=== PATIENT | male | born 1955 | race Caucasian/White ===

== ENCOUNTER → 2016-10-14 | Outpatient (CLI) | payer OTHER | END | disposition home or self-care (01) | LOC: C.LAB 17:49 → EDSTATUS 10-18 10:37 | PROVIDERS: ATTEND Family Medicine | DX: Z82.0 Family history of epilepsy and other diseases of the nervous system (principal) ==

== ENCOUNTER 2024-03-25 09:29 | Inpatient (IN) ==
--- NOTE | 2024-03-25 09:50 | Emergency Department Note ---
Impression & Plan SBO (small bowel obstruction), Abdominal pain ED Provider Note NAME: GREGORY SALES AGE: 68 SEX: M : 1955 ARRIVES VIA: Walk-In INFORMANT: Patient ED PROVIDER(S): Ravi Pathak DO CHIEF COMPLAINT: Abdominal pain HPI: Patient is a 68-year-old male with a past medical history of restrictive lung disease and sarcoidosis who presents to the ER for abdominal pain. Belly pain is located in the right mid abdomen. It was associated with some nausea. Denies any headache or change in vision. No chest pain or shortness of breath. Did have a little bit of a runny nose when the pain got severe and a cough. No dysuria, urgency, or frequency. Additional history is obtained from who is present at bedside who notes that there was no abdominal surgeries ever performed. ADDITIONAL HISTORY OBTAINED: Per HPI Chronic Medical/Social Conditions Affecting Care: Per HPI PAST MEDICAL HISTORY:See Below PAST SURGICAL HISTORY:See Below FAMILY HISTORY:See Below SOCIAL HISTORY:See Below HOME MEDICATIONS:See Below ALLERGIES:See Below VITALS:See Below PHYSICAL EXAMINATION: GENERAL: Sitting up in bed, alert, well appearing, well nourished, no distress, non-toxic EYE EXAM: normal conjunctiva. PERRL and EOM's grossly intact. OROPHARYNX: mucous membranes are moist NECK: supple, no nuchal rigidity, no adenopathy, non-tender LUNGS: Clear to auscultation. Normal chest wall mechanics HEART: no murmurs, S1 normal and S2 normal ABDOMEN: abdomen soft, non-tender, normo-active bowel sounds, no masses, no rebound or guarding. UPPER EXTREMITIES: upper extremities are grossly normal. LOWER EXTREMITIES: No pitting edema. NEURO EXAM: Normal sensorium, cranial nerves II-XII grossly intact, normal speech, no gross weakness of arms, no gross weakness of legs. MEDICAL DECISION MAKING: Patient is a 68-year-old male who presents to the ER for right mid abdominal pain. He eventually does remember having a surgery on his prostate which they went through the abdomen. IVs were established medicos obtained. Labs show no significant leukocytosis or anemia. BMP along with LFTs bilirubin was unremarkable. Lipase was normal. UA was clean. CT abdomen pelvis suggest a small bowel obstruction. Patient had no vomiting while in the ER. He was given IV fluids, for morphine and Zofran. He was updated bedside. Discussed with the hospitalist Albert Bryant for further evaluation/management treatment. I did notify Hanh Real from general surgery and will defer from the hospitalist. Consults/Care Managements Discussions: Per [facility] Triage Nursing notes reviewed. Limited review of prior medical records performed Vital Signs: reviewed and remarkable for no significant abnormalities Differential diagnosis: Differential diagnoses includes but is not limited to gastritis, peptic ulcer disease, GERD, gallbladder disease, pancreatitis, small bowel obstruction, appendicitis, diverticulitis, hernia, urinary tract infection, torsion, perforation, trauma, infectious. ER treatment provided: See below Diagnostics interpreted by me include EKG and cardiac monitoring as listed below: -Cardiac Monitoring: An order was placed for continuous cardiac monitoring. The monitor shows a rate of 60 with sinus rhythm. -ECG: none -Laboratory studies:Interpreted by me as stated above in MDM and shown below. Imaging studies: Xrays: As interpreted by me:none CTs show: CT abdomen pelvis per my preliminary interpretation showed significant dilation of bowel CT abdomen pelvis per radiology showed a small bowel obstruction Procedures:none Critical Care: None Past Med/Surg History Problem List (Updated 03/25/24 @ 14:01 by Ravi Pathak DO) Abdominal pain (Acute) SBO (small bowel obstruction) (Acute) Hypoxia Sarcoidosis Small bowel obstruction Urinary frequency Testicular pain UTI symptoms Restrictive lung disease Acute thoracic back pain (Acute) Left foot pain (Acute) Primary osteoarthritis of right foot (Acute) Medical History Pulmonary fibrosis, unspecified Sarcoidosis Atypical nevi Diabetes mellitus Psoriasis Prostate cancer Surgical History (Updated 02/06/24 @ 00:05 by Kel Chung) Cataract, bilateral History of repair of rotator cuff History of prostate surgery History of knee surgery History of ear surgery Family History Father Prostate cancer Heart disease Social History Smoking Status: Never smoker Second Hand Exposure: Yes (Mother and father); Do You Dip or Chew Tobacco: No; Hx Alcohol Use: No Hx Substance Use: No Preferred Language: Vietnamese Current Living Situation: Spouse Feels Safe at Home: Yes Safety Concerns: Feels Safe At This Time Assistive Devices: Glasses and Hospital Bed Allergies Allergies Allergy/AdvReac Type Severity Reaction Status Date / Time No Known Drug Allergies Allergy Verified 01/30/24 14:39 Home Meds Home Medications Medication Instructions Recorded Confirmed lisinopril 2.5 mg tablet 2.5 mg PO HS #90 tabs 02/25/19 03/25/24 apremilast 30 mg tablet (Otezla) 30 mg PO DAILY 07/27/23 03/25/24 rosuvastatin 5 mg tablet 5 mg PO Q OTHER DAY 07/27/23 03/25/24 esomeprazole magnesium 40 mg 40 mg PO DAILY 03/25/24 03/25/24 capsule,delayed release Previous Rx's Medication Instructions Recorded meloxicam 7.5 mg tablet 7.5 mg PO DAILY PRN pain #30 tabs 08/13/23 mycophenolate mofetil 250 mg 500 mg (2 x 250 mg) PO BID #120 01/04/24 capsule (CellCept) caps Results & Data (ED) Vital Signs Vital Signs - 24 hr 03/25/24 09:31 03/25/24 10:05 Temperature 36.4 C L Temperature Source Temporal Artery Scan Pulse Rate 62 44 L Respiratory Rate 14 Blood Pressure 134/83 Blood Pressure Mean 100 Pulse Oximetry 100 Oxygen Delivery Method Room Air Sepsis New/Unexplained Change in Mental Status No Sepsis Action Taken by Nursing No Action Required Laboratory Data 03/25/24 09:49 03/25/24 09:49 Lab Results 03/25/24 03/25/24 Range/Units 09:49 09:57 WBC 8.05 (4.8-10.8) K/ul RBC 5.26 (4.70-6.10) M/uL Hgb 15.6 (14.0-18.0) g/dl POC Hgb 15.0 (14.0-18.0) g/dl Hct 45.1 (42.0-52.0) % POC Hct 44 (42-52) % MCV 85.7 (80.0-100.0) fL MCH 29.7 (25.0-34.0) pg MCHC 34.6 (32.0-36.0) g/dL RDW Std Deviation 42.6 (36.4-46.3) fL RDW Coeff of Agnes 13.6 (11.5-14.5) % Plt Count 337 (130-400) K/uL MPV 9.6 (9.4-12.4) fL Immature Gran % (Auto) 0.1 % Neut % (Auto) 90.6 % Lymph % (Auto) 4.8 % [place] % (Auto) 3.6 % Eos % (Auto) 0.4 % Baso % (Auto) 0.5 % Neut # (Auto) 7.29 H (1.40-6.50) K/uL Lymph # (Auto) 0.39 L (1.20-3.40) K/uL [place] # (Auto) 0.29 (0.11-0.59) K/uL Eos # (Auto) 0.03 (0.00-0.50) K/uL Baso # (Auto) 0.04 (0.00-0.20) K/uL Immature Gran # (Auto) 0.01 (0.01-0.20) K/uL POC Sodium 137 (135-144) mmol/L Sodium 136 (136-145) mmol/L POC Potassium 3.7 (3.3-5.0) mmol/L Potassium 3.9 (3.5-5.1) mmol/L POC Chloride 99 L (101-112) mmol/L Chloride 98 (98-107) mmol/L Carbon Dioxide 27 (21-32) mmol/L POC Total CO2 24 (24-31) mmol/L Anion Gap 11 (3-11) POC Anion Gap 19.0 (16-25) mmol/L POC BUN 21 H (7-18) mg/dl BUN 22 (6-23) mg/dl Creatinine 0.94 (0.6-1.4) mg/dl POC Creatinine 0.9 (0.6-1.3) mg/dl Est Cr Clr Drug Dosing 72.7 ml/min Est GFR ( Amer) 96.8 ml/min Est GFR (Non-Af Amer) 83.6 ml/min BUN/Creatinine Ratio 23.4 H (10-20) Glucose 129 H (70-99(Fasting)) mg/dl POC Glucose (other) 134 H (70-99) mg/dl Calcium 11.2 H (8.6-10.3) mg/dl POC Ioniz Calcium Britt[place] 1.16 (1.12-1.32) mmol/l Total Bilirubin 0.9 (0.2-1.0) mg/dl AST 23 (13-39) U/L ALT 16 (7-52) U/L Alkaline Phosphatase 85 (34-104) U/L Total Protein 8.4 H (6.0-8.3) gm/dl Albumin 5.0 (3.4-5.0) gm/dl Globulin 3.4 (2.5-4.0) gm/dl Albumin/Globulin Ratio 1.5 (0.9-2) Lipase 41 (11-82) U/L Urine Color Yellow Urine Appearance Clear (Clear) Urine pH >= 9.0 H (4.5-7.5) Ur Specific [place] 1.023 (1.000-1.030) Urine Protein 1+ H (Negative) Urine Glucose (UA) Negative (Negative) Urine Ketones 2+ H (Negative) Urine Blood Negative (Negative) Urine Nitrite Negative (Negative) Urine Bilirubin Negative (Negative) Urine Urobilinogen Negative (Negative) Ur Leukocyte Esterase Trace H (Negative) Urine WBC (Auto) 0-5 (0-5) /hpf Urine RBC (Auto) 0-2 (0-2) /hpf U Hyaline Cast (Auto) 0-2 (0-2) /lpf U Epithel Cells (Auto) 0-2 (0-2) /hpf Urine Bacteria (Auto) None Seen (None Seen) Administered Medications Parenteral Electrolytes (Plasma-Lyte A Ph 7.4) 1,000 mls @ 100 mls/hr IV .Q10H SOLANGE Stop: 03/27/24 13:29 Last Admin: 03/25/24 12:50 Dose: 100 mls/hr Documented By: ADIA Discontinued Medications Sodium Chloride (Nss) 500 mls @ 999 mls/hr IV .Q31M ONE Stop: 03/25/24 10:18 Last Infusion: 03/25/24 11:05 Dose: Infused Documented By: Admin: 03/25/24 10:21 Dose: 999 mls/hr Documented By: CEF Acetaminophen (Ofirmev) 1,000 mg in 100 mls @ 400 mls/hr IV NOW STA Stop: 03/25/24 11:38 Last Infusion: 03/25/24 12:22 Dose: Infused Documented By: Admin: 03/25/24 12:07 Dose: 400 mls/hr Documented By: CHARIS Ioversol (Optiray 320 100ml) 94 ml IV ONCE ONE Stop: 03/25/24 10:16 Last Admin: 03/25/24 10:16 Dose: 94 ml Documented By: RICHARD Morphine Sulfate (Morphine Sulfate 4 Mg/Ml 1 Ml Carp\Vial) 4 mg IV NOW STA Stop: 03/25/24 09:49 Last Admin: 03/25/24 10:06 Dose: 4 mg Documented By: CHARIS Ondansetron HCl (Ondansetron Inj 2 Mg/Ml 2 Ml Vial) 4 mg IV NOW STA Stop: 03/25/24 09:49 Last Admin: 03/25/24 10:00 Dose: 4 mg Documented By: CHARIS Imaging Data Radiologist's Impression: Abdomen/Pelvis CT 03/25/24 10:00 CT OF THE ABDOMEN AND PELVIS WITH CONTRAST CLINICAL HISTORY: Right mid abdominal pain. COMPARISON STUDY: CT of the abdomen and pelvis October 10, 2023. TECHNIQUE: Following IV administration of 94 mL of Optiray, axial images of the abdomen and pelvis were obtained from the lung bases to the proximal femurs. Images were reviewed in the axial, sagittal, and coronal planes. IV contrast was administered without complication. Automated exposure control was utilized for the study. A dose lowering technique was utilized adhering to the principles of ALARA. CT DOSE: 684.25 mGy.cm FINDINGS: Interlobular septal thickening and ill-defined opacities within the lower lungs are similar to CT of October 10, 2023. The findings are likely chronic. No pneumatosis, free air or portal venous gas is present. The stomach is moderately distended and fluid-filled. Large water attenuation bilateral renal lesions reflect cysts. These measure up to 15 cm. There is no hydronephrosis. There is no biliary or pancreatic ductal dilatation. Spleen, adrenal glands and pancreas are unremarkable. There is no peripancreatic or pericholecystic infiltration. Multiple loops of moderately dilated mid small bowel are noted. Transition point within the right mid abdomen is identified on image 212 of 405. Distal small bowel is decompressed. No bowel wall thickening is present. There is sigmoid diverticulosis without evidence for acute diverticulitis. Major vasculature is patent. IMPRESSION: 1. Findings consistent with a small bowel obstruction with transition point within the right mid abdomen. Moderately distended fluid-filled stomach. 2. Multiple renal cysts. 3. Sigmoid diverticulosis. No evidence for acute diverticulitis. ACT 112: Negative or not required by law. Electronically signed by: Terrence Dubon M.D. 03/25/2024 10:40 AM Discharge Plan Visit Data Chief Complaint: Abdominal Pain Stated Complaint: UPPER ABD PAIN WRAPS AROUND TO BACK L SIDE ED Provider: Ravi Pathak Discharge Problem: SBO (small bowel obstruction), Abdominal pain Patient Disposition: Admitted As Inpatient Discharge Instructions Interventions: ED Discharge Assessment Last Done: 03/25/24 12:12 Discharge Problem: Abdominal pain Qualifiers: Abdominal location: unspecified location Qualified Code(s): R10.9 - Unspecified abdominal pain
[2024-03-25] MEDS: ONDANSETRON INJ 2 MG/ML 2 ML VIAL IV STA (10:00)
[2024-03-25] MEDS: MoRPHine SULFATE 4 MG/ML 1 ML CARP\\VIAL IV STA (10:06)
[2024-03-25 10:08] LABS: Hematocrit (blood only) 45.1 % (42.0-52.0); Hemoglobin 15.6 g/dl (14.0-18.0); Mean Corpuscular Hemoglobin 29.7 pg (25.0-34.0); Mean Corpuscular Hgb Conc 34.6 g/dL (32.0-36.0); Mean Corpuscular Volume 85.7 fL (80.0-100.0); Mean Platelet Volume 9.6 fL (9.4-12.4); Platelet Count 337 K/uL (130-400); RDW Coefficient of Variation 13.6 % (11.5-14.5); RDW Standard Deviation 42.6 fL (36.4-46.3); Red Blood Count 5.26 M/uL (4.70-6.10); White Blood Count 8.05 K/ul (4.8-10.8)
[2024-03-25 10:10] LABS: iSTAT Creatinine 0.9 mg/dl (0.6-1.3); iSTAT Ionized Calcium 1.16 mmol/l (1.12-1.32); iSTAT Potassium 3.7 mmol/L (3.3-5.0)
[2024-03-25 10:13] LABS: Appearance Urine Clear (Clear); Bacteria Urine Automated None Seen (None Seen); Bilirubin Urine Negative (Negative); Blood Urine Negative (Negative); Cast Urine Automated 0-2 /lpf (0-2); Color Urine Yellow; Epithelial Cell Urine Auto 0-2 /hpf (0-2); Glucose Urine UA Negative (Negative); Ketones Urine 2+ (Negative); Leukocyte Esterase Urine Trace (Negative); Nitrite Urine Negative (Negative); Protein Urine 1+ (Negative); RBC Urine Automated 0-2 /hpf (0-2); Specific Gravity Urine 1.023 (1.000-1.030); Urobilinogen Urine Negative (Negative); WBC Urine Automated 0-5 /hpf (0-5); pH Urine >= 9.0 (4.5-7.5)
[2024-03-25] MEDS: OPTIRAY 320 100ml IV ONE (10:16)
[2024-03-25] MEDS: SODIUM CHLORIDE 0.9% 500 ML IV ONE (10:21)
[2024-03-25 10:27] LABS: Albumin Globulin Ratio 1.5 (0.9-2); BUN Creatinine Ratio 23.4 (10-20); Bilirubin,Total 0.9 mg/dl (0.2-1.0); Calcium 11.2 mg/dl (8.6-10.3); Creatinine Clr Calc Pharmacy 72.7 ml/min; Est GFR (African American) 96.8 ml/min; Est GFR (Non-African American) 83.6 ml/min; Globulin 3.4 gm/dl (2.5-4.0); Potassium 3.9 mmol/L (3.5-5.1); Total Protein 8.4 gm/dl (6.0-8.3)
[2024-03-25 10:33] LABS: Basophils # (auto) 0.04 K/uL (0.00-0.20); Basophils % (auto) 0.5 %; Eosinophils # (auto) 0.03 K/uL (0.00-0.50); Eosinophils % (auto) 0.4 %; Immature Granulocytes # (auto) 0.01 K/uL (0.01-0.20); Immature Granulocytes % (auto) 0.1 %; Lymphocytes # (auto) 0.39 K/uL (1.20-3.40); Lymphocytes % (auto) 4.8 %; Monocytes # (auto) 0.29 K/uL (0.11-0.59); Monocytes % (auto) 3.6 %; Neutrophils # (auto) 7.29 K/uL (1.40-6.50); Neutrophils % (auto) 90.6 %
--- NOTE | 2024-03-25 10:41 | CT Scan Report ---
CT OF THE ABDOMEN AND PELVIS WITH CONTRAST CLINICAL HISTORY: Right mid abdominal pain. COMPARISON STUDY: CT of the abdomen and pelvis October 10, 2023. TECHNIQUE: Following IV administration of 94 mL of Optiray, axial images of the abdomen and pelvis we re obtained from the lung bases to the proximal femurs. Images were reviewed in the axial, sagittal, and coronal planes. IV contrast was administered without complication. Automated exposure control wa s utilized for the study. A dose lowering technique was utilized adhering to the principles of ALARA . CT DOSE: 684.25 mGy.cm FINDINGS: Interlobular septal thickening and ill-defined opacities within the lower lungs are similar to CT of October 10, 2023. The findings are likely chronic. No pneumatosis, free air or portal venous gas is present. The stomach is moderately distended and fluid-filled. Large water attenuation bilater al renal lesions reflect cysts. These measure up to 15 cm. There is no hydronephrosis. There is no bi liary or pancreatic ductal dilatation. Spleen, adrenal glands and pancreas are unremarkable. There is no peripancreatic or pericholecystic infiltration. Multiple loops of moderately dilated mid small clifford wel are noted. Transition point within the right mid abdomen is identified on image 212 of 405. Dista l small bowel is decompressed. No bowel wall thickening is present. There is sigmoid diverticulosis w ithout evidence for acute diverticulitis. Major vasculature is patent. IMPRESSION: 1. Findings consistent with a small bowel obstruction with transition point within the right mid abdo men. Moderately distended fluid-filled stomach. 2. Multiple renal cysts. 3. Sigmoid diverticulosis. No evidence for acute diverticulitis. ACT 112: Negative or not required by law. Electronically signed by: Terrence Dubon M.D. 03/25/2024 10:40 AM
--- NOTE | 2024-03-25 10:54 | History & Physical Report ---
Date of Service March 25, 2024 Assessment & Plan (1) Small bowel obstruction: Plan: Acute onset of low transverse abdominal pain on the evening of 03/24 A/P CT consistent with SBO No prior history of SBO; Hx of prostate surgery in 2011 (done laparoscopically) Strict n.p.o. for now; hold all p.o. medications IV fluid maintenance with Plasma-Lyte at 100mL/hr x 5L IV acetaminophen and Dilaudid as needed for pain IV antiemetics Will defer NG tube and surgical consult at this time Supportive care A.m. CBC, BMP (2) Hypoxia: Plan: Informed by nursing staff that patient's SpO2 began to drop after he received morphine Supplemental oxygen as needed to maintain SpO2 94% Continuous pulse oximetry Dose reduce opioids (3) Sarcoidosis: Plan: Dx in 2007 Okay to continue CellCept; hold other p.o. medications Plan Disposition: Admit to [facility] Full code Strict n.p.o. for now VTE PPx: Lovenox 40 mg SQ q24h History of Present Illness Chief Complaint: Abdominal pain Primary Care Provider: Do Perez MD Thanh is a pleasant 68-year-old male with PMH of sarcoidosis, osteoarthritis, and urinary frequency. He presented for acute onset of low, transverse abdominal pain with radiation to both flanks and lower back on the evening of 03/24. The pain came on suddenly around 11 PM on 03/24. He rated the pain 12/10 at the time, and characterized it as a constant abdominal pain with intermittent, sharp jabs. He did not take any pain medicine last night. No exacerbating or alleviating symptoms to his knowledge. No prior history of SBO. The pain radiated to both of his flanks bilaterally as well as his lower back. His last BM was yesterday morning on 03/24. He is unsure if he is currently passing gas. Only prior surgery was prostate surgery on October 18, 2011 (done laparoscopically). Patient did not take his regular morning medications; he takes CellCept for symptomatic sarcoidosis. Patient's last meal was last night around 7:30 PM. No supplemental oxygen at home or CPAP at night. He denies smoking, tobacco use, or recent alcohol use. No fever last night. No vomiting. No sick contacts. Patient is bradycardic at 44 bpm at time of admission; vitals otherwise stable. ED course: NSS 500 mL IV Morphine sulfate 4 mg IV Zofran 4 mg IV ROS: Patient endorses dull headache, productive cough (clear), runny nose, lower abdominal pain bilaterally, lower back pain, flank pain b/l, nausea, and intermittent neuropathy in the feet. Patient denies fever, chills, night-sweats, dizziness, lightheadedness, chest pain, chest palpitations, SOB, vomiting, diarrhea, burning with urination, blood in urine/stool, melena, or saddle anesthesia. Allergies Allergy/AdvReac Type Severity Reaction Status Date / Time No Known Drug Allergies Allergy Verified 01/30/24 14:39 Home Medications Medication Instructions Recorded Confirmed Type lisinopril 2.5 mg tablet 2.5 mg PO HS #90 tabs 02/25/19 03/25/24 History apremilast 30 mg tablet (Otezla) 30 mg PO DAILY 07/27/23 03/25/24 History rosuvastatin 5 mg tablet 5 mg PO Q OTHER DAY 07/27/23 03/25/24 History meloxicam 7.5 mg tablet 7.5 mg PO DAILY PRN pain #30 tabs 08/13/23 03/25/24 Rx mycophenolate mofetil 250 mg 500 mg (2 x 250 mg) PO BID #120 01/04/24 03/25/24 Rx capsule (CellCept) caps esomeprazole magnesium 40 mg 40 mg PO DAILY 03/25/24 03/25/24 History capsule,delayed release Past Med/Surg History Problem List (Updated 03/25/24 @ 14:01 by Ravi Pathak DO) Abdominal pain (Acute) SBO (small bowel obstruction) (Acute) Hypoxia Sarcoidosis Small bowel obstruction Urinary frequency Testicular pain UTI symptoms Restrictive lung disease Acute thoracic back pain (Acute) Left foot pain (Acute) Primary osteoarthritis of right foot (Acute) Medical History Pulmonary fibrosis, unspecified Sarcoidosis Atypical nevi Diabetes mellitus Psoriasis Prostate cancer Surgical History (Updated 02/06/24 @ 00:05 by Kel Chung) Cataract, bilateral History of repair of rotator cuff History of prostate surgery History of knee surgery History of ear surgery Family History Father Prostate cancer Heart disease Social History Smoking Status: Never smoker Second Hand Exposure: Yes (Mother and father); Do You Dip or Chew Tobacco: No; Hx Alcohol Use: No Hx Substance Use: No Preferred Language: Albanian Communication Ability: Effective Current Living Situation: Spouse Feels Safe at Home: Yes Safety Concerns: Feels Safe At This Time Assistive Devices: Glasses and Hospital Bed Review of Systems Review of Systems: See HPI above Physical Exam Physical Exam: General: no acute distress; pleasant affect; non-toxic appearing; well- nourished; cooperative; SpO2 97% on 2L NC HEENT: normocephalic, atraumatic; no scleral icterus; PERRLA; vision and hearing grossly intact Neck: supple; no lymphadenopathy; trachea midline Skin: warm, dry without signs of tenting; no cyanosis; no rashes, bruising, lesions, or erythema noted CV: chest wall NTP; RR, bradycardic around 45 bpm; S1/S2 normal; no murmurs/rubs/gallops; pulses intact and symmetric at radial, DP, and PT Lungs: no acute respiratory distress; symmetrical chest wall expansion; clear breath sounds across all lung [place] w/o adventitious sounds; no wheezing ABD: Soft; left upper quadrant is mildly TTP; no rashes or bruising on the abdomen (mild psoriasis noted on the right lower quadrant); flanks NTP; BS present; no rebound/guarding; no distention MSK: no tics or fasciculations; no edema noted in the LEs b/l, nonerythematous Neuro: A&Ox3; normal mood and affect; fluent speech; no focal deficits; sensation grossly intact and symmetric in the LEs b/l Results & Data Results & Data Vital Signs (Past 12 Hours) Vital Signs Temp Pulse Resp BP Pulse Ox O2 Del Method 03/25/24 10:05 44 L 03/25/24 09:31 36.4 C L 62 14 134/83 100 Room Air Laboratory Results Abnormal lab results 03/25/24 03/25/24 Range/Units 09:49 09:57 Neut # (Auto) 7.29 H (1.40-6.50) K/uL Lymph # (Auto) 0.39 L (1.20-3.40) K/uL POC Chloride 99 L (101-112) mmol/L POC BUN 21 H (7-18) mg/dl BUN/Creatinine Ratio 23.4 H (10-20) Glucose 129 H (70-99(Fasting)) mg/dl POC Glucose (other) 134 H (70-99) mg/dl Calcium 11.2 H (8.6-10.3) mg/dl Total Protein 8.4 H (6.0-8.3) gm/dl Urine pH >= 9.0 H (4.5-7.5) Urine Protein 1+ H (Negative) Urine Ketones 2+ H (Negative) Ur Leukocyte Esterase Trace H (Negative) Diagnostic Findings Abdomen/Pelvis CT 03/25/24 10:00 CT OF THE ABDOMEN AND PELVIS WITH CONTRAST CLINICAL HISTORY: Right mid abdominal pain. COMPARISON STUDY: CT of the abdomen and pelvis October 10, 2023. TECHNIQUE: Following IV administration of 94 mL of Optiray, axial images of the abdomen and pelvis were obtained from the lung bases to the proximal femurs. Images were reviewed in the axial, sagittal, and coronal planes. IV contrast was administered without complication. Automated exposure control was utilized for the study. A dose lowering technique was utilized adhering to the principles of ALARA. CT DOSE: 684.25 mGy.cm FINDINGS: Interlobular septal thickening and ill-defined opacities within the lower lungs are similar to CT of October 10, 2023. The findings are likely chronic. No pneumatosis, free air or portal venous gas is present. The stomach is moderately distended and fluid-filled. Large water attenuation bilateral renal lesions reflect cysts. These measure up to 15 cm. There is no hydronephrosis. There is no biliary or pancreatic ductal dilatation. Spleen, adrenal glands and pancreas are unremarkable. There is no peripancreatic or pericholecystic infiltration. Multiple loops of moderately dilated mid small bowel are noted. Transition point within the right mid abdomen is identified on image 212 of 405. Distal small bowel is decompressed. No bowel wall thickening is present. There is sigmoid diverticulosis without evidence for acute diverticulitis. Major vasculature is patent. IMPRESSION: 1. Findings consistent with a small bowel obstruction with transition point within the right mid abdomen. Moderately distended fluid-filled stomach. 2. Multiple renal cysts. 3. Sigmoid diverticulosis. No evidence for acute diverticulitis. ACT 112: Negative or not required by law. Electronically signed by: Terrence Dubon M.D. 03/25/2024 10:40 AM Code Status & VTE Plan Code Status Full code VTE Prophylaxis Plan VTE Prophylaxis will be ordered: Yes Supervising Physician Co-Signing Physician Notes I personally saw and examined the patient. I independently reviewed the labs, imaging, problem list, medication list, past medical history and family history. I verified all fermin points and agree with Irwin Muniz PA-C with the following exceptions and/or additions: 68 year old with prior robotic surgery on prostate presents to the ER with abdominal pain and SBO on CT. No prior episodes of this. O/E HS RRR, no murmurs, Chest CTAB, Mild lower abdominal pain on exam without guarding or rebound tenderness A/P SBO - NPO, IV fluids, pain medication PG Care Time/CCT Total # of Minutes Spent Total Time Spent with Patient: Total time spent is greater than 50% in coordination of care (as documented) at patient's floor/unit and/or counseling patient: Coding [place] [address] INT INP/OBS CARE 2/55MIN Patient Type Established Medical Decision Making Moderate Complexity Diagnoses Small bowel obstruction K56.609 Hypoxia R09.02 Sarcoidosis D86.9
[2024-03-25] MEDS: ACETAMINOPHEN 1,000 MG/100 ML VIAL IV STA (12:07)
[2024-03-25] MEDS ORDERED: HYDROmorphone INJ 1 MG/ML SYRINGE IV PRN (12:29)
[2024-03-25] MEDS: PLASMA-LYTE A 1,000 ML IV SCH (12:50)
[2024-03-25] MEDS: HYDROmorphone INJ 0.5 MG/0.5 ML SYR IV PRN (16:14)
[2024-03-25] MEDS: ONDANSETRON INJ 2 MG/ML 2 ML VIAL IV PRN (17:01)
[2024-03-25] MEDS: MYCOPHENOLATE MOFETIL 250 MG CAP PO SCH (20:47)
[2024-03-25] MEDS: ENOXAPARIN INJ 40 MG/0.4 ML SYR SQ SCH (20:48)
[2024-03-26 07:21] VITALS: RESP 16
[2024-03-26 08:42] LABS: BUN Creatinine Ratio 26.3 (10-20); Calcium 8.2 mg/dl (8.6-10.3); Creatinine Clr Calc Pharmacy 89.9 ml/min; Est GFR (African American) 109.4 ml/min; Est GFR (Non-African American) 94.4 ml/min; Potassium 3.8 mmol/L (3.5-5.1)
[2024-03-26 08:47] LABS: Basophils # (auto) 0.05 K/uL (0.00-0.20); Eosinophils # (auto) 0.34 K/uL (0.00-0.50); Eosinophils % (auto) 6.8 %; Hematocrit (blood only) 37.2 % (42.0-52.0); Hemoglobin 12.1 g/dl (14.0-18.0); Immature Granulocytes # (auto) 0.02 K/uL (0.01-0.20); Immature Granulocytes % (auto) 0.4 %; Lymphocytes # (auto) 0.51 K/uL (1.20-3.40); Lymphocytes % (auto) 10.2 %; Mean Corpuscular Hemoglobin 28.8 pg (25.0-34.0); Mean Corpuscular Hgb Conc 32.5 g/dL (32.0-36.0); Mean Corpuscular Volume 88.6 fL (80.0-100.0); Mean Platelet Volume 9.6 fL (9.4-12.4); Monocytes # (auto) 0.47 K/uL (0.11-0.59); Monocytes % (auto) 9.4 %; Neutrophils % (auto) 72.2 %; Platelet Count 249 K/uL (130-400); RDW Coefficient of Variation 14.1 % (11.5-14.5); RDW Standard Deviation 45.7 fL (36.4-46.3); White Blood Count 4.99 K/ul (4.8-10.8)
--- NOTE | 2024-03-26 10:17 | Hospitalist Progress Note ---
Date of Service March 26, 2024 Assessment & Plan (1) Small bowel obstruction: Plan: Acute onset of low transverse abdominal pain on the evening of 03/24 - CT A/P on admission consistent with SBO - No prior history of SBO; Hx of prostate surgery in 2011 (done laparos copically) - Strict NPO for now; hold all p.o. medications (except CellCept) - IV fluid maintenance with Plasma-Lyte at 100mL/hr x 5L - Continue supportive care with IV acetaminophen for mild pain, IV Dilaudid for mod-severe pain, IV Zofran for nausea - Will defer NG tube and surgical consult at this time - Positive bowel sounds, passing gas, no bowel movement yet 03/26 - Consider advancing to clear liquid diet in the AM 03/27 if continues to clinically improve (2) Hypoxia: Plan: Informed by nursing staff that patient's SpO2 began to drop after he received morphine - Supplemental oxygen as needed to maintain SpO2 94% - Dose reduce opioids - Stable on room air since (3) Sarcoidosis: Plan: Diagnosed in 2007 - Okay to continue CellCept; hold other p.o. medications Plan Strict n.p.o. for now VTE PPx: Lovenox 40 mg SQ q24h CODE STATUS: Full code Admission and Anticipated Discharge Date Admission Date: March 25, 2024 Supervising Physician Co-Signing Physician Notes Attending Attestation - Chart reviewed, care plan d/w PRISCILA Kay. I agree w/ the fermin components of her documentation. Albert Oquendo MD Subjective Patient seen and evaluated at bedside. He reports that he is feeling better tod ay. He notes that he has passed some gas today. Denies a bowel movement. Denies any nausea, vomiting, abdominal pain. He notes his last bowel movement was 03/24/2024. We discussed the medical management of small bowel obstruction. All questions/concerns were answered. No additional complaints or concerns at this time. Physical Exam Physical Exam: General: No acute distress, nondiaphoretic, well-developed, well-nourished. Skin: The skin was without rashes, erythema, edema, or bruising. Cardiac: Bradycardic in the 50s. S1/S2 normal. No murmur/rub/gallops. Pulm: Clear to auscultation bilaterally without wheezes, rales or rhonchi. No respiratory distress. 96% on room air. Abdominal: Bowel sounds present. Mildly distended. Soft, nontender. No guarding or rebound tenderness. Neuro: A&O x3. No focal neurological deficits. Results & Data Results & Data Vital Signs (Past 12 Hours) Vital Signs Temp Pulse Resp BP Pulse Ox O2 Del Method 03/26/24 07:20 36.6 C 50 L 16 125/70 96 Room Air Laboratory Results Reviewed CBC Reviewed BMP Diagnostic Findings Abdomen/Pelvis CT 03/25/24 10:00 CT OF THE ABDOMEN AND PELVIS WITH CONTRAST CLINICAL HISTORY: Right mid abdominal pain. COMPARISON STUDY: CT of the abdomen and pelvis October 10, 2023. TECHNIQUE: Following IV administration of 94 mL of Optiray, axial images of the abdomen and pelvis were obtained from the lung bases to the proximal femurs. Images were reviewed in the axial, sagittal, and coronal planes. IV contrast was administered without complication. Automated exposure control was utilized for the study. A dose lowering technique was utilized adhering to the principles of ALARA. CT DOSE: 684.25 mGy.cm FINDINGS: Interlobular septal thickening and ill-defined opacities within the lower lungs are similar to CT of October 10, 2023. The findings are likely chronic. No pneumatosis, free air or portal venous gas is present. The stomach is moderately distended and fluid-filled. Large water attenuation bilateral renal lesions reflect cysts. These measure up to 15 cm. There is no hydronephrosis. There is no biliary or pancreatic ductal dilatation. Spleen, adrenal glands and pancreas are unremarkable. There is no peripancreatic or pericholecystic infiltration. Multiple loops of moderately dilated mid small bowel are noted. Transition point within the right mid abdomen is identified on image 212 of 405. Distal small bowel is decompressed. No bowel wall thickening is present. There is sigmoid diverticulosis without evidence for acute diverticulitis. Major vasculature is patent. IMPRESSION: 1. Findings consistent with a small bowel obstruction with transition point within the right mid abdomen. Moderately distended fluid-filled stomach. 2. Multiple renal cysts. 3. Sigmoid diverticulosis. No evidence for acute diverticulitis. ACT 112: Negative or not required by law. Electronically signed by: Terrence Dubon M.D. 03/25/2024 10:40 AM PG Care Time/CCT Total # of Minutes Spent Total Time Spent with Patient: Total time spent is greater than 50% in coordination of care (as documented) at patient's floor/unit and/or counseling patient: Coding Level of Care Code 30600 SUB INP/OBS CARE 2MIN Diagnoses Small bowel obstruction K56.609 Hypoxia R09.02 Sarcoidosis D86.9
[2024-03-26] MEDS: ACETAMINOPHEN 1,000 MG/100 ML VIAL IV PRN (20:35)
[2024-03-27 07:37] LABS: Basophils # (auto) 0.06 K/uL (0.00-0.20); Basophils % (auto) 1.3 %; Eosinophils # (auto) 0.25 K/uL (0.00-0.50); Eosinophils % (auto) 5.2 %; Hematocrit (blood only) 38.3 % (42.0-52.0); Hemoglobin 12.3 g/dl (14.0-18.0); Immature Granulocytes # (auto) 0.02 K/uL (0.01-0.20); Immature Granulocytes % (auto) 0.4 %; Lymphocytes # (auto) 0.46 K/uL (1.20-3.40); Lymphocytes % (auto) 9.6 %; Mean Corpuscular Hemoglobin 28.6 pg (25.0-34.0); Mean Corpuscular Hgb Conc 32.1 g/dL (32.0-36.0); Mean Corpuscular Volume 89.1 fL (80.0-100.0); Mean Platelet Volume 9.4 fL (9.4-12.4); Monocytes # (auto) 0.48 K/uL (0.11-0.59); Neutrophils # (auto) 3.51 K/uL (1.40-6.50); Neutrophils % (auto) 73.5 %; Platelet Count 227 K/uL (130-400); RDW Coefficient of Variation 13.5 % (11.5-14.5); White Blood Count 4.78 K/ul (4.8-10.8)
[2024-03-27 08:10] LABS: BUN Creatinine Ratio 25.7 (10-20); Calcium 8.5 mg/dl (8.6-10.3); Creatinine Clr Calc Pharmacy 97.6 ml/min; Est GFR (African American) 113.2 ml/min; Est GFR (Non-African American) 97.7 ml/min; Potassium 3.8 mmol/L (3.5-5.1)
--- NOTE | 2024-03-27 08:10 | Hospitalist Progress Note ---
Date of Service March 27, 2024 Assessment & Plan (1) Small bowel obstruction: Plan: Acute onset of low transverse abdominal pain on the evening of 03/24 - CT A/P on admission consistent with SBO - No prior history of SBO; Hx of prostate surgery in 2011 (done laparos copically) - Did not require NG tube placement nor surgical consult - Continue supportive care with IV acetaminophen for mild pain, IV Dilaudid for mod-severe pain, IV Zofran for nausea - Return of bowel function: passing gas and had bowel movement - Advanced to clear liquid diet 03/27, well-tolerated. Will advance to full- liquids for dinner and plan for low-fiber diet for breakfast 03/28 (2) Hypoxia: Plan: Informed by nursing staff that patient's SpO2 began to drop after he received morphine on admission - Supplemental oxygen as needed to maintain SpO2 94% - Dose reduce opioids - Stable on room air since (3) Sarcoidosis: Plan: Diagnosed in 2007 - Continue CellCept Plan Advanced diet Discontinued IV fluids VTE PPx: Lovenox 40 mg SQ q24h CODE STATUS: Full code Admission and Anticipated Discharge Date Admission Date: March 25, 2024 Supervising Physician Co-Signing Physician Notes Attending Attestation - Chart reviewed, care plan d/w PRISCILA Kay. I agree w/ the fermin components of her documentation. Albert Oquendo MD Subjective Patient seen and evaluated at bedside. He is doing well today. He had a bowel movement this morning. Diet was advanced to clear liquids this morning, which has been well-tolerated. Denies nausea, vomiting, abdominal pain. We discussed advancing to full liquid diet for dinner, then low fiber diet for breakfast tomorrow assuming he continues to improve clinically. No additional complaints or concerns at this time. Physical Exam Physical Exam: General: No acute distress, nondiaphoretic, well-developed, well-nourished. Skin: The skin was without rashes, erythema, edema, or bruising. Cardiac: Regular rate and rhythm. S1/S2 normal. No murmur/rub/gallops. Pulm: Clear to auscultation bilaterally without wheezes, rales or rhonchi. No respiratory distress. 96% on room air. Abdominal: Bowel sounds present. Soft, nontender, nondistended. No guarding or rebound tenderness. Neuro: A&O x3. No focal neurological deficits. Results & Data Results & Data Vital Signs (Past 12 Hours) Vital Signs Temp Pulse Resp BP Pulse Ox O2 Del Method 03/27/24 07:28 36.7 C 62 16 129/71 96 Room Air 03/27/24 00:23 36.6 C 57 L 16 128/69 95 Room Air Laboratory Results Reviewed CBC Reviewed BMP PG Care Time/CCT Total # of Minutes Spent Total Time Spent with Patient: Total time spent is greater than 50% in coordination of care (as documented) at patient's floor/unit and/or counseling patient: Coding Level of Care Code 72410 SUB INP/OBS CARE 2/35MIN Diagnoses Small bowel obstruction K56.609 Hypoxia R09.02 Sarcoidosis D86.9
[2024-03-28 07:31] VITALS: TEMP 98.2; O2SAT 94
[2024-03-28 08:31] LABS: Hematocrit (blood only) 36.5 % (42.0-52.0); Hemoglobin 12.2 g/dl (14.0-18.0); Mean Corpuscular Hgb Conc 33.4 g/dL (32.0-36.0); Mean Corpuscular Volume 86.9 fL (80.0-100.0); Mean Platelet Volume 9.7 fL (9.4-12.4); Platelet Count 243 K/uL (130-400); RDW Coefficient of Variation 13.4 % (11.5-14.5); RDW Standard Deviation 42.1 fL (36.4-46.3); White Blood Count 4.21 K/ul (4.8-10.8)
[2024-03-28 08:52] LABS: BUN Creatinine Ratio 14.9 (10-20); Creatinine Clr Calc Pharmacy 92.3 ml/min; Est GFR (African American) 110.6 ml/min; Est GFR (Non-African American) 95.4 ml/min; Magnesium 1.9 mg/dl (1.7-2.4); Potassium 3.8 mmol/L (3.5-5.1)
--- NOTE | 2024-03-28 12:10 | Discharge Summary ---
Discharge Summary Date of Service March 28, 2024 Principal Dx & Hospital Course #1 = Principal Diagnosis (1) Small bowel obstruction: Acute onset of low transverse abdominal pain on the evening of 03/24 - CT A/P on admission consistent with SBO - No prior history of SBO; Hx of prostate surgery in 2011 (done laparoscopically) - Did not require NG tube placement nor surgical consult - Return of bowel function: passing gas and multiple bowel movements - Tolerated advancement of diet to low fiber. Recommended continuing low fiber diet x 1 week, then advancing as tolerated. - Recommend establishing care with GI outpatient. - Recommend colonoscopy, last was in 02/2016. (2) Hypoxia: Informed by nursing staff that patient's SpO2 began to drop after he received morphine on admission - Supplemental oxygen as needed to maintain SpO2 94% - Dose reduce opioids - Stable on room air since (3) Sarcoidosis: Diagnosed in 2007 - Continue CellCept Plan CODE STATUS: Full code Notes For Next Care Provider Patient presented with abdominal pain and was found to have small bowel obstruction on admission. He did not require NG tube placement neurosurgical evaluation. He had a quick recovery with return of bowel function and tolerating oral diet. Recommend that Mr. Flowers establishes care with GI outpatient and gets colonoscopy, last visit in 02/2016. Medication Changes From Visit none Admission HPI Per Admitting Provider Thanh is a pleasant 68-year-old male with PMH of sarcoidosis, osteoarthritis, and urinary frequency. He presented for acute onset of low, transverse abd ominal pain with radiation to both flanks and lower back on the evening of 03/24. The pain came on suddenly around 11 PM on 03/24. He rated the pain 12/10 at the time, and characterized it as a constant abdominal pain with intermittent, sharp jabs. He did not take any pain medicine last night. No exacerbating or alleviating symptoms to his knowledge. No prior history of SBO. The pain radiated to both of his flanks bilaterally as well as his lower back. His last BM was yesterday morning on 03/24. He is unsure if he is currently passing gas. Only prior surgery was prostate surgery on October 18, 2011 (done laparoscopically). Patient did not take his regular morning medications; he takes CellCept for symptomatic sarcoidosis. Patient's last meal was last night around 7:30 PM. No supplemental oxygen at home or CPAP at night. He denies smoking, tobacco use, or recent alcohol use. No fever last night. No vomiting. No sick contacts. Patient is bradycardic at 44 bpm at time of admission; vitals otherwise stable. ED course: NSS 500 mL IV Morphine sulfate 4 mg IV Zofran 4 mg IV ROS: Patient endorses dull headache, productive cough (clear), runny nose, lower abdominal pain bilaterally, lower back pain, flank pain b/l, nausea, and intermittent neuropathy in the feet. Patient denies fever, chills, night-sweats, dizziness, lightheadedness, chest pain, chest palpitations, SOB, vomiting, diarrhea, burning with urination, blood in urine/stool, melena, or saddle anesthesia. Admission Exam Per Admitting Provider General: no acute distress; pleasant affect; non-toxic appearing; well- nourished; cooperative; SpO2 97% on 2L NC HEENT: normocephalic, atraumatic; no scleral icterus; PERRLA; vision and hearing grossly intact Neck: supple; no lymphadenopathy; trachea midline Skin: warm, dry without signs of tenting; no cyanosis; no rashes, bruising, lesions, or erythema noted CV: chest wall NTP; RR, bradycardic around 45 bpm; S1/S2 normal; no murmurs/rubs/gallops; pulses intact and symmetric at radial, DP, and PT Lungs: no acute respiratory distress; symmetrical chest wall expansion; clear breath sounds across all lung merida w/o adventitious sounds; no wheezing ABD: Soft; left upper quadrant is mildly TTP; no rashes or bruising on the abdomen (mild psoriasis noted on the right lower quadrant); flanks NTP; BS present; no rebound/guarding; no distention MSK: no tics or fasciculations; no edema noted in the LEs b/l, nonerythematous Neuro: A&Ox3; normal mood and affect; fluent speech; no focal deficits; sensation grossly intact and symmetric in the LEs b/l Discharge Exam General: No acute distress, nondiaphoretic, well-developed, well-nourished. Skin: The skin was without rashes, erythema, edema, or bruising. Cardiac: Regular rate and rhythm. S1/S2 normal. No murmur/rub/gallops. Pulm: Clear to auscultation bilaterally without wheezes, rales or rhonchi. No respiratory distress. 96% on room air. Abdominal: Bowel sounds present. Soft, nontender, nondistended. No guarding or rebound tenderness. Neuro: A&O x3. No focal neurological deficits. Discharge Plan Discharge Items Patient Disposition: Home - Self-Care Reason For Visit: UPPER ABD PAIN WRAPS AROUND TO BACK L SIDE Discharge Diagnosis: Small bowel obstruction (SBO) Activity: Resume your previous activity Non-emergency contact: Primary Care Provider Call non-emergency contact if: you have any medication questions and your symptoms worsen Follow-up/Referrals: Kate Jaimes DO [Resident] - 04/07/24 10:45 am Diet: Low Fiber Addtl Attending Provider Instructions: Mr. Flowers, Andrea were admitted to the hospital for a small bowel obstruction (SBO). A small bowel obstruction is a condition in which the small intestine gets blocked, then air, fluid, and food gets stuck in the intestine. They cannot move through the small intestine the way they normally would. You were treated with bowel rest and IV fluids. This improved on its own, and did not require surgery. When you leave the hospital, you may still have some discomfort, and your stomach may still feel bloated. Follow these instructions for how to take care of yourself at home: * Eat small amounts of food several times a day (do not eat 3 large meals). * Please eat a low fiber diet for 1 week. A handout explaining a low fiber diet has been attached to your discharge papers for further details. These foods include breads, biscuits, pancakes, waffles, bagels, saltines, alice crackers bananas, melons, applesauce, white rice, pasta, tender meat, fish and poultry, ham, doty, shellfish, lunch meat, dairy products. * Avoid high-fiber foods and raw fruits and vegetables. These include whole grains, popcorn, brown rice, oatmeal, granola, quinoa, nuts, seeds, dried beans, baked beans, peas and lentils, dried fruit. * Encourage liquid intake. * Stay physically active as tolerated. * Establish care with GI (gastroenterology). I have asked our staff to make an appointment for you; their office should call you sometime next week with an appointment date and time. Please return to the hospital if you experience any of the following: Severe abdominal pain, persistent nausea and vomiting, cannot pass stool or gas, fever of 100.5 F or higher, shortness of breath, chest pain, or passing out. It was a pleasure taking care of you while you were in the hospital, Khadra Kay PA-C Pending Studies at Discharge: No Stand-Alone Forms: My [facility], Smoking Cessation Medications and DC Order Prescriptions: Continued mycophenolate mofetil [CellCept] 250 mg capsule 500 mg PO BID Qty: 120 11RF lisinopril 2.5 mg tablet 2.5 mg PO HS Qty: 90 rosuvastatin 5 mg tablet 5 mg PO Q OTHER DAY meloxicam 7.5 mg tablet 7.5 mg PO DAILY PRN (Reason: pain) Qty: 30 1RF Otezla 30 mg tablet 30 mg PO DAILY esomeprazole magnesium 40 mg capsule,delayed release(DR/EC) 40 mg PO DAILY Discharge Orders: Discharge Order (Routine); Ordered 03/28/24 Ordered By: Khadra Amaya/Other Patient Handouts: Small Bowel Obstruction, Low-Fiber Diet Admission Data Admit Date/Time: 03/25/24 11:20 Attending Provider: Albert Oquendo Admit Provider: Albert Bryant Primary Care Provider: Do Perez Other Providers: Clarence Mobley Other Interventions: Discharge Summary Assessment (RN) Last Done: 03/28/24 13:24 Hospital Stay Data Consultations 03/25/24 10:48 ED Decision to Admit Stat Diagnostic Imagining Performed Abdomen/Pelvis CT 03/25/24 10:00 CT OF THE ABDOMEN AND PELVIS WITH CONTRAST CLINICAL HISTORY: Right mid abdominal pain. COMPARISON STUDY: CT of the abdomen and pelvis October 10, 2023. TECHNIQUE: Following IV administration of 94 mL of Optiray, axial images of the abdomen and pelvis were obtained from the lung bases to the proximal femurs. Images were reviewed in the axial, sagittal, and coronal planes. IV contrast was administered without complication. Automated exposure control was utilized for the study. A dose lowering technique was utilized adhering to the principles of ALARA. CT DOSE: 684.25 mGy.cm FINDINGS: Interlobular septal thickening and ill-defined opacities within the lower lungs are similar to CT of October 10, 2023. The findings are likely chronic. No pneumatosis, free air or portal venous gas is present. The stomach is moderately distended and fluid-filled. Large water attenuation bilateral renal lesions reflect cysts. These measure up to 15 cm. There is no hydronephrosis. There is no biliary or pancreatic ductal dilatation. Spleen, adrenal glands and pancreas are unremarkable. There is no peripancreatic or pericholecystic infiltration. Multiple loops of moderately dilated mid small bowel are noted. Transition point within the right mid abdomen is identified on image 212 of 405. Distal small bowel is decompressed. No bowel wall thickening is present. There is sigmoid diverticulosis without evidence for acute diverticulitis. Major vasculature is patent. IMPRESSION: 1. Findings consistent with a small bowel obstruction with transition point within the right mid abdomen. Moderately distended fluid-filled stomach. 2. Multiple renal cysts. 3. Sigmoid diverticulosis. No evidence for acute diverticulitis. ACT 112: Negative or not required by law. Electronically signed by: Terrence Dubon M.D. 03/25/2024 10:40 AM Pending Results Patient Have Any Pending Studies at Discharge: No Discharge Instructions Given to Patient (Per Discharging Provider) Mr. Flowers, Andrea were admitted to the hospital for a small bowel obstruction (SBO). A small bowel obstruction is a condition in which the small intestine gets blocked, then air, fluid, and food gets stuck in the intestine. They cannot move through the small intestine the way they normally would. You were treated with bowel rest and IV fluids. This improved on its own, and did not require surgery. When you leave the hospital, you may still have some discomfort, and your stomach may still feel bloated. Follow these instructions for how to take care of yourself at home: * Eat small amounts of food several times a day (do not eat 3 large meals). * Please eat a low fiber diet for 1 week. A handout explaining a low fiber diet has been attached to your discharge papers for further details. These foods include breads, biscuits, pancakes, waffles, bagels, saltines, alice crackers bananas, melons, applesauce, white rice, pasta, tender meat, fish and poultry, ham, doty, shellfish, lunch meat, dairy products. * Avoid high-fiber foods and raw fruits and vegetables. These include whole grains, popcorn, brown rice, oatmeal, granola, quinoa, nuts, seeds, dried beans, baked beans, peas and lentils, dried fruit. * Encourage liquid intake. * Stay physically active as tolerated. * Establish care with GI (gastroenterology). I have asked our staff to make an appointment for you; their office should call you sometime next week with an appointment date and time. Please return to the hospital if you experience any of the following: Severe abdominal pain, persistent nausea and vomiting, cannot pass stool or gas, fever of 100.5 F or higher, shortness of breath, chest pain, or passing out. It was a pleasure taking care of you while you were in the hospital, Khadra Kay PA-C Supervising Physician Co-Signing Physician Notes Attending Attestation and Discharge Note: Pt seen/examined, chart reviewed, discharge care plan d/w PRISCILA Kay. I agree w/ the fermin components of her discharge documentation. 68yo male with history of sarcoid on chronic cellcept and prior laparoscopic prostatectomy for prostate ca presented with severe abd pain 2nd to SBO. Patient treated conservatively with bowel rest, IV fluids, IV pain meds. He did not require NG tube decompression. Prior to discharge he was passing copious amounts of flatus and was having stools. Abdominal bloating was improved and he was tolerating a low fiber diet. Advised low fiber diet for at least 1 week post-discharge. His SBO was likely on the basis of adhesions (may have developed such from his laparoscopic prostatectomy). Other rare possibility is that of having sarcoid of the bowel. Recommended f/u with Dr Patterson, general surgery in [place], to discuss having outpatient colonoscopy (Dr Patterson did his previous colonoscopy). Discharge exam: gen - NAD, looks well neck - no JVD mouth - MMM heart - RRR, s1 s2, no murmur lungs - CTA b/l abd - soft NT ND BS+; no peritoneal signs ext - no edema, pulses 2+ b/l Albert Oquendo MD Total Time Total Time Spent Total Time Spent (In Minutes): Greater than 30 minutes spent completing this discharge process including direct patient care, medication reconciliation, documentation, review of labs and images, and coordination of care. Coding Level of Care Code 64694 INP/OBS DISCH >30 MIN Diagnoses Small bowel obstruction K56.609 Hypoxia R09.02 Sarcoidosis D86.9
[2024-03-28 13:26] VITALS: BP 143/69; PULSE 59
== END 2024-03-28 13:57 | disposition home or self-care (01) | DRG 390 ==
LOC: ED 09:29 → SUATTDRO 11:20 → 3W 11:20